=== PATIENT | female | born 1975 | race Hispanic/Latino ===

== ENCOUNTER 2017-01-13 03:29 | Emergency (ER) | payer MEDICAID ==
[2017-01-13] MEDS ORDERED: HYDROmorphone HCL 1 MG/ML SYR ONE (04:39)
[2017-01-13] MEDS ORDERED: ONDANSETRON HCL 4 MG/2 ML VIAL ONE (04:40)
[2017-01-13] MEDS ORDERED: FAMOTIDINE IN SALINE, ISO-OSM 50 ML IV ONE (04:40)
[2017-01-13] MEDS ORDERED: KETOROLAC TROMETHAMINE 30 MG/ML VIAL ONE (04:40)
[2017-01-13 04:41] LABS: BASOPHIL# 0.1 X 10^3uL (0.0-0.1); BASOPHILS 0.5 % (0.0-2.0); EOSINOPHILS 0.6 % (0.0-6.0); EOSINOPHILS# 0.1 X 10^3uL (0.0-0.4); HEMATOCRIT 41.8 % (36.0-48.0); HEMOGLOBIN 14.5 g/dL (12.0-16.0); LYMPHOCYTES 9.8 % (20.0-40.0); MEAN CELL VOLUME 84.1 fL (80.0-100.0); MEAN CORPUS. HGB CONCENTRATION 34.7 g/dL (32.0-36.0); MEAN CORPUSCULAR HEMOGLOBIN 29.2 pg (29.0-35.0); MEAN PLATELET VOLUME 8.9 fL (7.4-10.4); MONOCYTES 3.9 % (2.0-10.0); MONOCYTES# 0.4 X 10^3uL (0.2-1.0); NEUTROPHILS 85.2 % (54.0-75.0); NEUTROPHILS# 8.9 X 10^3uL (2.6-6.7); PLATELET COUNT 123 X 10^3uL (130-440); RED BLOOD COUNT 4.97 X 10^6uL (4.20-6.10); RED CELL DISTRIBUTION WIDTH 12.9 % (11.5-14.5); WHITE BLOOD COUNT 10.5 X 10^3uL (3.9-10.7)
[2017-01-13 04:51] LABS: ALKALINE PHOSPHATASE 49 U/L (38-126); ALT 35 U/L (9-52); AST 19 U/L (14-36); BILIRUBIN, DIRECT 0.2 mg/dL (0.0-0.4); BILIRUBIN, TOTAL 1.5 mg/dL (0.2-1.3); BLOOD UREA NITROGEN 9 mg/dL (7-17); CALCIUM 8.9 mg/dL (8.4-10.2); CHLORIDE 106 mmol/L (98-107); CREATININE 0.5 mg/dL (0.5-1.0); EST GLOMERULAR FILTRATION RATE > 60 mL/min; GLUCOSE 113 mg/dL (70-100); LIPASE 57 U/L (23-300); POTASSIUM 3.8 mmol/L (3.5-5.1); SODIUM 137 mmol/L (137-145); TOTAL PROTEIN 7.4 g/dL (6.3-8.2)
[2017-01-13] MEDS ORDERED: METOCLOPRAMIDE HCL 10 MG/2 ML VIAL ONE (05:54)
--- NOTE | 2017-01-13 06:56 | CT REPORT ---
EXAMINATION: CT OF THE ABDOMEN AND PELVIS WITH IV CONTRAST INDICATION: Abdominal pain, nausea, vomiting. TECHNIQUE: Transaxial images of the abdomen and pelvis were obtained from the diaphragmatic dome to t he ischial tuberosity according to routine abdomen and pelvis protocol, following the administration of intravenous contrast material, Isovue 300, 100 ml. This examination was performed using automate d exposure control, adjustment of mA or kV according to patient size, and/or use of iterative reconst ruction technique. COMPARISON: None FINDINGS: Liver: The right lobe of the liver is enlarged, measuring 19.6 cm craniocaudad, without evidence of w orrisome focal lesions on this exam. Patent portal veins. Bile ducts: No intra- or extra-hepatic dilation. Gallbladder: Surgically absent. Pancreas: Normal. Spleen: Spleen is at the upper limits of normal size measuring 12.6 cm transverse diameter. Adrenals: Normal adrenal glands. Kidneys/Urinary Bladder: Kidneys appear normal without hydronephrosis or obstructive nephrolithiasis. Urinary bladder is thin walled and distended. Reproductive organs: Slightly bulbous appearance of the uterine fundus may reflect small fibroids. GI tract/Mesentery: Normal appendix. No obstruction. Vascular: Aorta and IVC appear normal. Peritoneum/retroperitoneum: No free fluid or free air. Lymph Nodes: No significant lymphadenopathy in the abdomen or pelvis. Bones: Bones appear normal without evidence of acute fractures. Superficial Soft Tissue: Normal. Lower chest: The demonstrated lung bases are clear. IMPRESSION: 1. No pathological CT findings to explain abdominal pain. 2. Slightly enlarged right lobe of the liver measuring 19.6 cm craniocaudal, possibly a variant Darren el's lobe in the absence of known liver disease. 3. Bulbous appearance of the uterine fundus may reflect small fibroids. 4. Follicular activity in the ovaries within physiologic limits. COMMUNICATION: Dr. Romy Gilman discussed the pertinent results with Dr. Rock at 01/13/2017 6:53 AM. Final Electronic Signature: This report was electronically signed by Derek Gilman MD on 01/13/2017 6:54 AM. fe /
--- NOTE | 2017-01-13 07:57 | ER PHYSICIAN DOCUMENTATION ---
Physician Documentation [facility] Name:China Marie Age:41 yrs Sex:Female :1975 Arrival Date:01/13/2017 Time:03:29 Bed4 Private MD:Chayo Chavez EDPranavMatti Disposition: 01/13/17 06:56 Discharged to Home/Self Care. Impression: Abdominal Pain, Epigastric. - Condition is Good. - Discharge Instructions: ABDOMINAL PAIN, Unknown Cause, (Female). - Prescriptions for Hydrocodone- Acetaminophen 5-325 mg Oral Tablet - take 1 tablet by ORAL route every 6 hours As needed; 20 tablet. Zofran 4 mg Oral Tablet - take 1-2 tablet by ORAL route every 4-6 hours As needed; 10 tablet. - Medical Reconciliation form form. - Follow up: Chayo Chavez MD; When: 4- 6 days; Reason: Continuance of care. - Problem is new. - Symptoms have improved. HPI: 01/13 06:46 This 41 yrs old Female presents to ER via Walk In with complaints of Fever, jm Nausea/Vomiting. 06:46 The patient presents with abdominal pain in the epigastric area. Onset: The jm symptoms/episode began/occurred gradually, today. The symptoms do not radiate. Associated signs and symptoms: Pertinent positives: fever, nausea, vomiting. The symptoms are described as sharp. Modifying factors: the symptoms are aggravated by movement, nothing. Severity of pain: in the emergency department the pain is a 8 / 10. The patient has not experienced similar symptoms in the past. The patient has not recently seen a physician. Pt here for n/v/d and abd pain. Pt states it started around 5:30pm w vomiting and then continued w pain. . Historical: - Allergies: No known drug Allergies; - PMHx: None; - PSHx: Cholecysectomy; - Tetanus: < 10 years. - Ebola Screening: : Patient denies exposure to infectious person. Patient denies travel to an Ebola-affected area in the 21 days before illness onset. . - Immunization history: Flu Vaccine < 1 year. - Social history: Smoking status: Patient states was never smoker of tobacco. Patient/guardian denies using alcohol. - Code Status:: Full code. ROS: 11:06 Constitutional: Negative for fatigue, fever. jm 11:06 ENT: Negative for rhinorrhea, sinus congestion, sore throat. 11:06 Cardiovascular: Negative for chest pain. 11:06 Respiratory: Negative for cough, shortness of breath. 11:06 Abdomen/GI: Positive for abdominal pain, nausea, vomiting, diarrhea. Exam: 11:06 Constitutional: The patient appears alert, awake, obese. 11:06 Eyes: Periorbital structures: appear normal, Conjunctiva: normal. 11:06 ENT: Mouth: is normal, Voice: is normal. 11:06 Neck: Thyroid: appears normal, Trachea: is midline with no obvious abnormalities. 11:06 Cardiovascular: Rate: normal, Rhythm: regular. 11:06 Respiratory: Respirations: normal, Breath sounds: are normal. 11:06 Abdomen/GI: Bowel sounds: normal, Palpation: moderate abdominal tenderness, in the epigastric area, right upper quadrant and left upper quadrant. 11:06 Back: CVA tenderness, is absent. 11:06 Back: pain, is absent. 11:06 : CVA tenderness, is absent. 11:06 : Bladder: is normal. 11:06 Skin: Appearance: Color: pink, no rash present. 11:06 Psych: Behavior/mood is pleasant, cooperative, Affect is calm. Vital Signs: 03:42 BP 120 / 56; Pulse 71; Resp 16; Temp 98.6; Pulse Ox 94% on R/A; Weight 77.11 kg; Height lb 5 ft. 2 in. (157.48 cm); Pain 0/10; 05:33 BP 136 / 63; Pulse 60; Resp 18; Temp 97.6; Pulse Ox 95% on R/A; Pain 5/10; lb 07:54 BP 106 / 57; Pulse 71; Pulse Ox 95% on R/A; Pain 0/10; st 03:42 Body Mass Index 31.09 (77.11 kg, 157.48 cm) lb MDM: 04:11 Patient medically screened. 11:11 Differential diagnosis: appendicitis, bowel obstruction, gastritis, Ovarian Torsion. Data reviewed: vital signs, nurses notes, old medical records, lab test result(s), radiologic studies, and as a result, I will discharge patient. Counseling: I had a detailed discussion with the patient and/or guardian regarding: the historical points, exam findings, and any diagnostic results supporting the discharge/admit diagnosis, lab results, radiology results, the need for outpatient follow up, with the patient's primary care provider. Medication response: The patient's symptoms have improved. ED course: Abd CT did not show any acute pathology - See their report. Pt better after meds. Labs WNL. DC home w dx of VGE and given hydrocodone and zofran. . 01/13 04:53 Order name: CBC AUTO DIF, MDIF/RMOR IF IND; Complete Time: 05:54 EDMS 01/13 04:53 Order name: BASIC METABOLIC PANEL; Complete Time: 05:54 EDMS 01/13 04:53 Order name: HEPATIC PANEL; Complete Time: 05:54 EDMS 01/13 04:53 Order name: LIPASE; Complete Time: 05:54 EDMS 01/13 05:14 Order name: HCG, SERUM; Complete Time: 05:54 EDMS 01/13 06:57 Order name: CAT SCAN; ABD/PEL W 66058 EDMS 01/13 03:43 Order name: Urine Dip; Complete Time: 04:39 lb 01/13 04:18 Order name: NPO; Complete Time: 04:40 Dispensed Medications: 04:39 Drug: Zofran 4 mg; Route: IVP; Infused Over: 2 mins; Site: right antecubital; lb 05:11 Follow up: Response: Nausea is decreased lb 04:40 Drug: Dilaudid 0.5 mg; Route: IVP; Site: right antecubital; lb 05:11 Follow up: Response: Pain is decreased lb 04:40 Drug: NS 0.9% 1000 ml; Route: IV; Rate: bolus; Site: right antecubital; lb 07:05 Follow up: IV Status: Completed infusion; IV Intake: 1000ml lb 04:40 Drug: Toradol 30 mg; Route: IVP; Site: right antecubital; lb 05:11 Follow up: Response: Pain is decreased lb 04:40 Drug: Pepcid 20 mg; Route: IVPB; Site: right antecubital; lb 05:11 Follow up: IV Status: Completed infusion; IV Intake: 100ml lb 05:30 Drug: Reglan 10 mg; Route: IVP; Site: right antecubital; lb 07:05 Follow up: Response: Nausea is decreased lb 05:30 Drug: Dilaudid 0.5 mg; Route: IVP; Site: right antecubital; lb 07:05 Follow up: Response: Pain is decreased lb 07:14 Drug: NS 0.9% 1000 ml; Route: IV; Rate: bolus; Site: right antecubital; st 07:54 Follow up: IV Status: Completed infusion; IV Intake: 1000ml st 07:15 CANCELLED (Physician Discretion): NS 0.9% 1000 ml IV at bolus once st Point of Care Testing: Urine Dip: 04:09 pH: 6.0; ; Specific [place]: 1.030; Ketones: Negative; Glucose: Negative; Protein: lb Positive (+); Leukocytes: Negative; Nitrite: Negative ; Blood: Negative; Bilirubin: Negative ; Urobilinogen: Normal Signatures: Amalia Vanegas RN RN st Meyer, John, MD MD jm Bollock, Lynda lb
--- NOTE | 2017-01-13 07:57 | ER NURSING DOCUMENTATION ---
Nurse's Notes [facility] Name:China Marie Age:41 yrs Sex:Female :1975 Arrival Date:01/13/2017 Time:03:29 Bed4 Private MD:Chayo Chavez Diagnosis:Abdominal Pain, Epigastric Presentation: 01/13 03:38 Presenting complaint: Patient states: general body aches, nausea, vomiting since 5pm lb last esau. also with urgency and burning with urination. Transition of care: Home. Notified ED Physician of Pranav Yanez notified. 03:38 Acuity: DEYANIRA 3 lb 03:38 Method Of Arrival: Walk In lb Triage Assessment: 03:41 General: Appears distressed, Behavior is appropriate for age. Pain: Denies pain. Derm: lb Skin is intact, is healthy with good turgor, Skin is dry, Skin is brown, Skin temperature is cool. Historical: - Allergies: No known drug Allergies; - PMHx: None; - PSHx: Cholecysectomy; - Tetanus: < 10 years. - Ebola Screening: : Patient denies exposure to infectious person. Patient denies travel to an Ebola-affected area in the 21 days before illness onset. . - Immunization history: Flu Vaccine < 1 year. - Social history: Smoking status: Patient states was never smoker of tobacco. Patient/guardian denies using alcohol. - Code Status:: Full code. Screenin:43 Infectious Disease Risk None. Abuse screen: Denies threats or abuse. Denies injuries lb from another. Nutritional screening: No deficits noted. Assessment: 03:42 See Triage Assessment done by same RN. Respiratory: Airway is patent Trachea midline lb Respiratory effort is even, unlabored, Breath sounds are clear bilaterally. 05:34 Reassessment: pt c/o nausea returned after meds and epigastric pain has increased. lb feels hot and sweaty although skin is warm and dry to touch.. 07:13 General: pt appears to be sleeping.. st Vital Signs: 03:42 BP 120 / 56; Pulse 71; Resp 16; Temp 98.6; Pulse Ox 94% on R/A; Weight 77.11 kg; Height lb 5 ft. 2 in. (157.48 cm); Pain 0/10; 05:33 BP 136 / 63; Pulse 60; Resp 18; Temp 97.6; Pulse Ox 95% on R/A; Pain 5/10; lb 07:54 BP 106 / 57; Pulse 71; Pulse Ox 95% on R/A; Pain 0/10; st 03:42 Body Mass Index 31.09 (77.11 kg, 157.48 cm) lb ED Course: 03:30 Patient arrived in ED. ma1 03:30 Chayo Chavez MD is Private Physician. ma1 03:38 Grace Latif is Primary Nurse. lb 03:41 Triage completed. lb 03:43 Valuables Remains with patient Patient has correct armband on for positive lb identification. Placed in gown. Bed in low position. Call light in reach. 04:11 Matti Rock MD is Attending Physician. jm 04:41 Inserted peripheral IV: 20 gauge in right antecubital area and blood collected. lb 06:[address] luis 06:[address] luis 06:55 Chayo Chavez MD is Referral Physician. Administered Medications: 04:39 Drug: Zofran 4 mg; Route: IVP; Infused Over: 2 mins; Site: right antecubital; lb 05:11 Follow up: Response: Nausea is decreased lb 04:40 Drug: Dilaudid 0.5 mg; Route: IVP; Site: right antecubital; lb 05:11 Follow up: Response: Pain is decreased lb 04:40 Drug: NS 0.9% 1000 ml; Route: IV; Rate: bolus; Site: right antecubital; lb 07:05 Follow up: IV Status: Completed infusion; IV Intake: 1000ml lb 04:40 Drug: Toradol 30 mg; Route: IVP; Site: right antecubital; lb 05:11 Follow up: Response: Pain is decreased lb 04:40 Drug: Pepcid 20 mg; Route: IVPB; Site: right antecubital; lb 05:11 Follow up: IV Status: Completed infusion; IV Intake: 100ml lb 05:30 Drug: Reglan 10 mg; Route: IVP; Site: right antecubital; lb 07:05 Follow up: Response: Nausea is decreased lb 05:30 Drug: Dilaudid 0.5 mg; Route: IVP; Site: right antecubital; lb 07:05 Follow up: Response: Pain is decreased lb 07:14 Drug: NS 0.9% 1000 ml; Route: IV; Rate: bolus; Site: right antecubital; st 07:54 Follow up: IV Status: Completed infusion; IV Intake: 1000ml st 07:15 CANCELLED (Physician Discretion): NS 0.9% 1000 ml IV at bolus once st Point of Care Testing: Urine Dip: 04:09 pH: 6.0; ; Specific [place]: 1.030; Ketones: Negative; Glucose: Negative; Protein: lb Positive (+); Leukocytes: Negative; Nitrite: Negative ; Blood: Negative; Bilirubin: Negative ; Urobilinogen: Normal Intake: 05:11 IV: 100ml; Total: 100ml. lb 07:05 IV: 1000ml; Total: 1100ml. lb 07:54 IV: 1000ml; Total: 2100ml. st Outcome: 06:56 Discharge ordered by MD. 07:54 Discharged to home ambulatory. st 07:54 Condition: improved 07:54 Discharge instructions given to patient, Instructed on discharge instructions, follow up and referral plans. medication usage, Prescriptions given X 1. 07:56 [address] the ED[address] 04 09:50 Discharge F/U Call: Unable to reach: no answer st Signatures: Amalia Vanegas RN RN st Meyer, John, MD MD jm Abbott, Rachael Latif, Cris Evans
== END 2017-01-13 07:56 | disposition home or self-care (01) ==
LOC: ER 03:29
DX: R10.13 Epigastric pain (principal); R11.2 Nausea with vomiting, unspecified; R19.7 Diarrhea, unspecified
CPT/HCPCS: 74177; 80048; 80076; 83690; 84703; 85025; 96361; 96365; 96375; 96376; 99284; J1170; J1885; J2405; J2765